=== PATIENT | female | born 2000 ===

== ENCOUNTER 2021-01-05 23:02 | Emergency (ER) | payer SELFPAY ==
[2021-01-05 23:05] VITALS: BP 120/78; PULSE 72; RESP 15; TEMP 36.2; O2SAT 98; BMI 25.7
--- NOTE | 2021-01-06 00:24 | ED.RN ---
CALLED PATIENTS NAME AT 0019 TO BRING BACK TO A ROOM AND PT WAS NOT IN WAITING ROOM AREA OR IMMEDIATE AREA. NAME WAS CALLED MULTIPLE TIMES. REGISTRATION NOTIFIED PT LWBS.
== END 2021-01-06 00:19 | disposition left against medical advice (07) ==
LOC: ED 01-06 00:25
DX: Z53.21 Procedure and treatment not carried out due to patient leaving prior to being seen by health care provider (principal)